=== PATIENT | male | born 1955 | race Caucasian/White ===

== ENCOUNTER 2021-05-19 10:43 | Outpatient (CLI) | payer MEDICARE, MEDICAID, SELFPAY ==
[2021-05-19 11:39] LABS: Alanine Aminotransferase 27 U/L (4-50); Albumin Level 4.4 g/dL (3.5-5.1); Alkaline Phosphatase 99 U/L (38-126); Anion Gap 7 mmol/L (8-16); Aspartate Amino Transferase 36 U/L (17-59); Bilirubin,Total 0.8 mg/dL (0.2-1.3); Blood Urea Nitrogen 13 mg/dL (9-20); Calcium 9.2 mg/dL (8.4-10.2); Carbon Dioxide 28 mmol/L (22-30); Chloride 106 mmol/L (98-107); Cholesterol 202 mg/dL (0-200); Estimated Glomerular Filt Rate > 60; Glucose 97 mg/dL (65-110); HDL Direct 30 mg/dL; Potassium 4.6 mmol/L (3.4-5.0); Sodium 141 mmol/L (137-145); Triglycerides 206 mg/dL (<150)
[2021-05-19 11:45] LABS: LDL Cholesterol Direct 137 mg/dL
[2021-05-19 11:58] LABS: Vitamin D 25 Hydroxy 15.7 ng/mL
[2021-05-19 12:05] LABS: Prostate Specific Antigen 1.1 ng/mL (< OR = 4.0)
[2021-05-19 12:19] LABS: Basophils Absolute Auto 0.1 K/mm3 (0.0-0.1); Eosinophils Absolute Auto 0.2 K/mm3 (0-0.3); Eosinophils Percent Auto 2.2 % (0-4.4); Hemoglobin 15.9 g/dL (14.0-18.0); Immature Granulocyte Absolute 0.03 K/mm3 (0.00-0.031); Immature Granulocyte Percent A 0.3 % (0-0.5); Lymphocytes Absolute Auto 3.25 K/mm3 (0.9-3.2); Lymphocytes Percent Auto 34.7 % (18.3-44.2); Mean Corpuscular HGB Conc 33.8 g/dl (32-36); Mean Corpuscular Hemoglobin 31.2 pg (26-34); Mean Corpuscular Volume 92.2 fl (80-100); Mean Platelet Volume 9.9 fl (7.4-10.4); Monocytes Absolute Auto 0.6 K/mm3 (0.1-0.6); Neutrophils Absolute Auto 5.2 K/mm3 (1.3-6.7); Neutrophils Percent Auto 55.8 % (45.5-73.1); Platelet Count Result 269 k/mm3 (150-375); Red Cell Distribution Width 12.9 % (11.5-14.5); White Blood Count 9.4 K/mm3 (4.5-10.0)
[2021-05-19 12:41] LABS: Free T4 Free Thyroxine Reflex 0.84 ng/dL (0.78-2.19)
[2021-05-19 14:05] LABS: Total Triiodothyronine (T3) 1.68 NG/ML (0.97-1.69)
== END 2021-05-19 10:44 | disposition home or self-care (01) ==
LOC: ANHLAB 11:00
PROVIDERS: Visit Provider Family Medicine
DX: M54.9 Dorsalgia, unspecified (principal); R29.6 Repeated falls; R26.89 Other abnormalities of gait and mobility; E55.9 Vitamin D deficiency, unspecified; E78.5 Hyperlipidemia, unspecified; Z13.220 Encounter for screening for lipoid disorders; Z12.5 Encounter for screening for malignant neoplasm of prostate
CPT/HCPCS: 36415; 80053; 80061; 82306; 82607; 84153; 84439; 84443; 84480; 85025; G0103

== ENCOUNTER 2021-09-14 09:31 | Outpatient (CLI) | payer MEDICARE, MEDICAID, SELFPAY ==
--- NOTE | 2021-09-14 | EST_ITS ---
Patient Info Name: Galo Evans Age: 66 years : 1955 Gender: Male Ht: 67 in Wt: 259 lbs BSA: 2.41 m2 Exam Date: 09/14/2021 10:22 AM Exam Location: [facility] Stress Patient Status: Outpatient Admit Date: 09/14/2021 Staff Ordering Physician: Asmita Khan MD Logistics Assistant: Jennifer Gonzalez RDCS Attending Provider: Asmita Khan MD Exercise Technologist: Leticia Wright CT Exercise Physician: Hugh Rey DO Exam Type: CA dobutamine stress echo Study Info Indications R94.31 - Abnormal electrocardiogram ECG EKG Dobutamine stress echocardiogram is performed. Summary 1. 1. Negative Dobutamine stress test for ischemic ST changes by ECG criteria. 2. 2. Baseline hypertension. 3. 3. Appropriate HR response to catecholamines. 4. 4. Negative dobutamine stress echocardiogram for ischemia by wall motion analysis. 5. 5. Patient informed of the above results. Stress Echo Findings Left Ventricle Appropriate increase in LV endocardial thickening with systole. Appropriate augmentation of contractility with systole. No wall motion abnormality. Left Ventricle Normal LV systolic function, no wall motion abnormality. Protocol: Doubutamine Stress ECG Details Stage: REST Duration (min): 1 min : 51 sec [place]: --- Speed (mph): 0.0 Grade (%): 0 HR (bpm): 71 SBP (mmHg): 151 DBP (mmHg): 81 METS: --- Stage: REST Duration (min): 13 min : 17 sec [place]: --- Speed (mph): 0.0 Grade (%): 0 HR (bpm): 66 SBP (mmHg): 151 DBP (mmHg): 81 METS: --- Stage: STAGE 1 Duration (min): 1 min : 0 sec [place]: --- Speed (mph): 0.0 Grade (%): 0 HR (bpm): 66 SBP (mmHg): 151 DBP (mmHg): 81 METS: --- Stage: STAGE 1 Duration (min): 2 min : 0 sec [place]: --- Speed (mph): 0.0 Grade (%): 0 HR (bpm): 75 SBP (mmHg): 151 DBP (mmHg): 81 METS: --- Stage: STAGE 1 Duration (min): 3 min : 0 sec [place]: --- Speed (mph): 0.0 Grade (%): 0 HR (bpm): 71 SBP (mmHg): 148 DBP (mmHg): 70 METS: --- Stage: STAGE 2 Duration (min): 1 min : 0 sec [place]: --- Speed (mph): 0.0 Grade (%): 0 HR (bpm): 93 SBP (mmHg): 148 DBP (mmHg): 70 METS: --- Stage: STAGE 2 Duration (min): 2 min : 0 sec [place]: --- Speed (mph): 0.0 Grade (%): 0 HR (bpm): 113 SBP (mmHg): 158 DBP (mmHg): 73 METS: --- Stage: STAGE 2 Duration (min): 3 min : 0 sec [place]: --- Speed (mph): 0.0 Grade (%): 0 HR (bpm): 119 SBP (mmHg): 158 DBP (mmHg): 73 METS: --- Stage: STAGE 3 Duration (min): 1 min : 0 sec [place]: --- Speed (mph): 0.0 Grade (%): 0 HR (bpm): 131 SBP (mmHg): 166 DBP (mmHg): 73 METS: --- Stage: STAGE 3 Duration (min): 2 min : 0 sec [place]: --- Speed (mph): 0.0 Grade (%): 0 HR (bpm): 135 SBP (mmHg): 166 DBP (mmHg): 73 METS: --- Stage: STAGE 3 Duration (min):
== END 2021-09-14 09:32 | disposition home or self-care (01) ==
LOC: ANHCARD 09:32
PROVIDERS: PCP Family Medicine; Visit Provider Family Medicine
DX: R94.31 Abnormal electrocardiogram [ECG] [EKG] (principal)
CPT/HCPCS: 93351

== ENCOUNTER 2021-12-19 09:41 | Outpatient (CLI) | payer MEDICARE, MEDICAID, SELFPAY ==
[2021-12-19 10:03] LABS: Alanine Aminotransferase 19 U/L (6-50); Albumin Level 4.2 g/dL (3.5-5.1); Alkaline Phosphatase 99 U/L (38-126); Anion Gap 6 mmol/L (8-16); Aspartate Amino Transferase 26 U/L (17-59); Bilirubin,Total 1.2 mg/dL (0.2-1.3); Blood Urea Nitrogen 14 mg/dL (9-20); Calcium 8.7 mg/dL (8.4-10.2); Carbon Dioxide 27 mmol/L (22-30); Chloride 107 mmol/L (98-107); Estimated Glomerular Filt Rate > 60; Glucose 99 mg/dL (65-110); Potassium 3.9 mmol/L (3.4-5.0); Sodium 140 mmol/L (137-145)
[2021-12-19 10:40] LABS: Vitamin D 25 Hydroxy 84.9 ng/mL
[2021-12-19 11:23] LABS: Free T4 Free Thyroxine Reflex 0.93 ng/dL (0.78-2.19)
[2021-12-19 13:31] LABS: Total Triiodothyronine (T3) 1.32 NG/ML (0.97-1.69)
== END 2021-12-19 09:42 | disposition home or self-care (01) ==
LOC: ANHLAB 09:42
PROVIDERS: PCP Family Medicine; Visit Provider Family Medicine
DX: E55.9 Vitamin D deficiency, unspecified (principal); I10 Essential (primary) hypertension
CPT/HCPCS: 36415; 80053; 82306; 84439; 84443; 84480

== ENCOUNTER 2021-12-21 16:36 | Emergency (ER) | payer MEDICARE, MEDICAID, SELFPAY ==
--- NOTE | ~2021-12-21 | CT_ITS ---
EXAMINATION: CT abdomen pelvis wo con DATE: 12/21/2021 18:42 INDICATION: Epigastric and left upper abdominal pain. Vomiting. TECHNIQUE: Computed tomography (CT) of the abdomen and pelvis was performed without intravenous contr ast. Automated exposure control and iterative reconstruction technique were employed. Exam dose: 135 9.41 mGy-cm total exam DLP. COMPARISON: None. FINDINGS: There is minimal dependent right lower lobe atelectasis. Heart size is normal. No pericardi al or pleural effusion. The liver, gallbladder, bile ducts, pancreas and pancreatic duct are unremarkable. Duodenal diverticu lum. Normal splenic size. Normal morphology of the left adrenal gland. Approximately 1.8 cm hypoattenuating right adrenal lesio n likely due to adenoma. There is evidence of a left upper pole renal mass lesion may measure up to or greater than 5 cm. Hype rnephroma is suggested. Further evaluation with MR examination (considering the shortage of IV iodina christin contrast material). Is recommended. No urinary tract calculus or hydroureteronephrosis is detected. The urinary bladder is unremarkable. Moderate prostate enlargement and mild prostate calcification. There is atherosclerotic calcification of the abdominal aorta but no aneurysm. With the exception of the left renal mass lesion, no intraperitoneal or retroperitoneal or pelvic mas s lesion or adenopathy or ascites is noted. Bilateral fat-containing inguinal hernias. Small fat-containing umbilical hernia. Normal appendix. There is minimal sigmoid diverticulosis; no CT evidence of diverticulitis. No bowel obstruction or intraperitoneal free air. Degenerative changes of thoracic spine. Prominent degenerative change at the lumbar spine including s evere degenerative disc disease at L1-2, L2-3 and L4-5, very prominent degenerative change at the apo physeal joints. No suspicious metastatic osteolytic or osteoblastic lesions are noted. IMPRESSION: Suspect large left upper pole renal mass, likely hypernephroma; further evaluation with MR examination is recommended Bilateral fat-containing inguinal hernias Small fat-containing umbilical hernia Dr. Owens telephoned the report on at [address] emergency room Dr. Itz Rangel. Reviewed, dictated and finalized at [facility]. Reviewed, dictated and finalized at location A. IMPRESSION: Suspect large left upper pole renal mass, likely hypernephroma; fu rther evaluation with MR examination is recommended Bilateral fat-containing inguinal hernias Small fat-containing umbilical hernia Dr. Owens telephoned the report on at [address] room [address] Ru Rangel.
--- NOTE | ~2021-12-21 | XR_ITS ---
EXAMINATION: XR chest 1V portable DATE: 12/21/2021 17:01 INDICATION: Shortness of breath. TECHNIQUE: A single frontal view of the chest was obtained. COMPARISON: None. FINDINGS: The chest demonstrates clear lungs without pneumonia, pleural effusion, or pneumothorax. Th e heart size is normal. IMPRESSION: 1. No acute cardiopulmonary disease. Reviewed, dictated and finalized at location B.
[2021-12-21 16:36] VITALS: BP 165/75; PULSE 70; RESP 16; TEMP 36.9; O2SAT 95
[2021-12-21 16:47] VITALS: PULSE 69
--- NOTE | 2021-12-21 16:59 | ECG_ITS ---
Measurements Intervals [place] Rate: 68 P: -1 ND: 142 QRS: -22 QRSD: 116 T: 29 QT: 406 QTc: 434 Interpretive Statements SINUS RHYTHM LOW QRS VOLTAGE IN PRECORDIAL LEADS [QRS DEFLECTION < 1.0 mV IN CHEST LEADS] POOR R-WAVE PROGRESSION ABNORMAL ECG NO PREVIOUS ECG AVAILABLE FOR COMPARISON Electronically Signed On 12-22-2021 14:29:59 CDT by Curtis Little M.D.
--- NOTE | 2021-12-21 17:07 | ED.GENADULT ---
HPI - General Adult General Chief complaint: Chest Pain Stated complaint: N/V cp Time Seen by Provider: 12/21/21 16:40 Source: patient, RN notes reviewed and old records reviewed Mode of arrival: ambulatory Limitations: no limitations History of Present Illness HPI narrative: This is a 66 year old male with history of palpitations, hypertension, obesity, DM who presents for evaluation of nausea and vomiting. Patient states he developed nausea and vomiting 2 hours ago . He had 4 episodes of nonbilious vomiting . He reports having left upper abdominal pain just prior to vomiting that lasted a few seconds. He reports having diaphoresis with his nausea and vomiting. He told staff he had chest pain but he is referring to his left upper abdomen. He denies fever, chills, cough or shortness of breath. He reports having normal stress test 2 months ago. He thinks his nausea and vomiting may be due to antibiotics he took for the first time today. He took augmentin at noon with his lunch for a dental abscess. Related Data Home Medications Medication Instructions Recorded Confirmed cyanocobalamin (vitamin B-12) 1,000 mcg IM MONTHLY 09/18/21 12/05/21 1,000 mcg/mL injection solution amlodipine 5 mg tablet 10 mg PO DAILY 12/05/21 12/05/21 metoprolol tartrate 25 mg tablet 25 mg PO QHS 12/05/21 12/05/21 Allergies Allergy/AdvReac Type Severity Reaction Status Date / Time No Known Allergies Allergy Verified 12/05/21 10:28 Review of Systems Review of Systems: All systems reviewed & are unremarkable except as noted in HPI and below Constitutional: Constitutional: Denies chills, Denies fatigue and Denies fever(s) ENT: Denies sore throat Cardiovascular: Cardiovascular: Denies chest pain and Denies rapid heart rate Respiratory: Respiratory: Denies chest congestion and Denies cough Gastrointestinal: Gastrointestinal: Reports abdominal pain, Denies diarrhea, Reports nausea and Reports vomiting Genitourinary: Genitourinary: Denies hematuria Musculoskeletal: Musculoskeletal: Denies back pain and Denies myalgias PMF Past Medical History Medical History Allergies Chronic neck and back pain Essential (primary) hypertension GERD (gastroesophageal reflux disease) Vitamin B12 deficiency Vitamin D deficiency Family History Family History Father Cerebrovascular accident Mother Hypertension Heart disease Social History Social History Smoking status: Current every day smoker Tobacco type: cigarettes Alcohol intake: never Substance use: never Substance use type: does not use Gender identity (if verbalized by the patient): Male Agree to blood products: Yes Exam Const: General: no acute distress Nutritional Appearance: well nourished Orientation/consciousness: patient oriented x3 Limitations: no limitations HENMT: Head: normal to inspection General nose exam: Normal external nose present Mouth: Yes Normal oral and palatal mucosa present Eyes: EOM: EOMs intact bilaterally Chest: Chest palpation & inspection: normal inspection of the chest Resp: Effort & Inspection: normal respiratory effort Auscultation: clear to auscultation bilaterally and breath sounds present Cardio: Rate: regular rate Rhythm: regular rhythm Heart sounds: no murmurs GI: GI Palp: Yes Soft to palpation, Yes Tenderness to palpation present (GI) (LUQ, epigastric), No Guarding due to palpation present (GI) and No Rigid due to palpation Auscultation: normal bowel sounds Back/Spine/Pelvis: Back: no CVA tenderness Skin: General skin exam: normal color Wounds: no wounds Neuro: General: patient oriented x3 and CN's II-XI intact bilaterally Psych: Mental Status: mental status grossly normal Affect: normal affect Course Reevaluation(s) Reevaluation #1:
--- NOTE | 2021-12-21 17:30 | PC.NURSE ---
pt states is having epigastric pressure. meds given per order. ekg repeated.
[2021-12-21 17:31] LABS: Basophils Percent Auto 0.3 % (0.2-1.2); Eosinophils Absolute Auto 0.1 K/mm3 (0-0.3); Eosinophils Percent Auto 0.8 % (0-4.4); Hematocrit 46.3 % (42.0-52.0); Immature Granulocyte Absolute 0.04 K/mm3 (0.00-0.031); Immature Granulocyte Percent A 0.3 % (0-0.5); Lymphocytes Absolute Auto 0.77 K/mm3 (0.9-3.2); Lymphocytes Percent Auto 5.9 % (18.3-44.2); Mean Corpuscular HGB Conc 32.4 g/dl (32-36); Mean Corpuscular Hemoglobin 30.3 pg (26-34); Mean Corpuscular Volume 93.5 fl (80-100); Mean Platelet Volume 10.3 fl (7.4-10.4); Monocytes Absolute Auto 0.7 K/mm3 (0.1-0.6); Monocytes Percent Auto 5.2 % (2.6-8.5); Neutrophils Absolute Auto 11.5 K/mm3 (1.3-6.7); Neutrophils Percent Auto 87.5 % (45.5-73.1); Platelet Count Result 266 k/mm3 (150-375); Red Blood Count 4.95 M/mm3 (4.6-6.20); White Blood Count 13.1 K/mm3 (4.5-10.0)
[2021-12-21 17:32] LABS: Alanine Aminotransferase 20 U/L (6-50); Albumin Level 4.1 g/dL (3.5-5.1); Alkaline Phosphatase 97 U/L (38-126); Anion Gap 5 mmol/L (8-16); Aspartate Amino Transferase 24 U/L (17-59); Bilirubin,Total 0.6 mg/dL (0.2-1.3); Blood Urea Nitrogen 18 mg/dL (9-20); Calcium 8.5 mg/dL (8.4-10.2); Carbon Dioxide 27 mmol/L (22-30); Chloride 107 mmol/L (98-107); Estimated CRCL calculation 79 ml/min; Estimated Glomerular Filt Rate > 60; Glucose 144 mg/dL (65-110); Lipase 129 U/L (23-300); Potassium 3.5 mmol/L (3.4-5.0); Sodium 139 mmol/L (137-145)
--- NOTE | 2021-12-21 17:38 | ECG_ITS ---
Measurements Intervals [place] Rate: 64 P: 33 NE: 150 QRS: 3 QRSD: 112 T: 11 QT: 407 QTc: 421 Interpretive Statements SINUS RHYTHM LOW QRS VOLTAGE IN PRECORDIAL LEADS [QRS DEFLECTION < 1.0 mV IN CHEST LEADS] BORDERLINE ECG COMPARED TO ECG 12/21/2021 16:43:08 NO SIGNIFICANT CHANGES Electronically Signed On 12-26-2021 15:00:49 CDT by Bennett Dyson M.D.
[2021-12-21] MEDS: PANTOPRAZOLE SODIUM IV 40 MG VIAL IV PUSH (17:43)
[2021-12-21] MEDS: ONDANSETRON INJ 4 MG/2 ML VIAL IV PUSH ×2 (17:43→21:54)
[2021-12-21 17:44] LABS: Troponin I < 0.012 ng/mL (0.000-0.034)
[2021-12-21 17:52] LABS: INR 1.2; Prothrombin Time 14.3 Seconds (11.1-14.7)
[2021-12-21 18:00] LABS: Partial Thromboplastin Time 27.4 SECONDS (22.3-36.8)
[2021-12-21 19:38] VITALS: BP 109/73; PULSE 66; RESP 18; O2SAT 100
[2021-12-21 20:55] LABS: Appearance Urine Clear (Clear); Bilirubin Urine 1+ (Negative); Blood Urine Negative (Negative); Color Urine Yellow (Yellow); Glucose Urine UA Negative (Negative); Ketones Urine Negative (Negative); Leukocyte Esterase Ur Negative LEU/UL (Negative); Nitrate Urine Negative (Negative); Protein Urine Negative (Negative); Specific Grav Ur 1.025 (1.001-1.035)
[2021-12-21 21:03] LABS: Mucus Urine Rare /lpf; RBC Urine 0-2 /hpf (0-2); WBC Urine 0-3 /hpf
[2021-12-21 21:04] LABS: Add Urine Microscopic? YES
[2021-12-21 21:05] LABS: Troponin I < 0.012 ng/mL (0.000-0.034)
[2021-12-21 22:19] VITALS: BP 125/69; PULSE 69; RESP 18; O2SAT 93
== END 2021-12-21 22:20 | disposition home or self-care (01) ==
PROVIDERS: General Practice; Emergency Provider Emergency Medicine; PCP Family Medicine
DX: R11.2 Nausea with vomiting, unspecified (principal); R10.12 Left upper quadrant pain; N28.89 Other specified disorders of kidney and ureter; K04.7 Periapical abscess without sinus; I10 Essential (primary) hypertension; K21.9 Gastro-esophageal reflux disease without esophagitis; E55.9 Vitamin D deficiency, unspecified; E53.8 Deficiency of other specified B group vitamins; E66.9 Obesity, unspecified; Z68.41 Body mass index [BMI] 40.0-44.9, adult; F17.210 Nicotine dependence, cigarettes, uncomplicated; R94.31 Abnormal electrocardiogram [ECG] [EKG]; K40.20 Bilateral inguinal hernia, without obstruction or gangrene, not specified as recurrent; K42.9 Umbilical hernia without obstruction or gangrene
CPT/HCPCS: 36415; 71045; 74176; 80053; 81001; 83690; 84484; 85025; 85610; 85730; 93005; 96374; 96375; 96376; 99284; C9113; J2405

== ENCOUNTER 2022-01-26 12:30 | Outpatient (RCR) | payer MEDICARE, MEDICAID, SELFPAY ==
--- NOTE | 2021-12-19 09:16 | PTOPEVAL ---
PHYSICAL THERAPY EVALUATION AND PLAN OF CARE 12-19-- Thank you for referring Galo Evans to [facility].? Antonio is scheduled to be seen for therapy? 2 x/week for 4 weeks. Please review, sign, date and return this plan of care ZINA. I agree with and certify that the following plan of care is medically necessary. Referring Physician Date Attending Provider: Beth Khan MD Past Medical History Source of Past Medical History Patient Neurological History Hx Neurological Disorders No Significant History Cardiovascular History Hx Other Cardiac Disorders Yes: PVC- meds control Respiratory History Hx Respiratory Disorders No Significant History Gastrointestinal History Hx Gastrointestinal Disorders No Significant History Musculoskeletal History Hx Arthritis Yes: neck, back, knees, Hx Back Pain Yes: chronic back pain- B sciatica Hx Other Musculoskeletal Disorders Yes: swelling in both lower legs/calves;B ankle weakness- have to wear boots Endocrine History Hx Other Endocrine Disorders Yes: to have blood work for ? thyroid issues HEENT History Hx Other HEENT Disorders Yes: wear glasses; saw ENT- no issues with ears Evaluation Information Diagnosis repeated falls, cervicalgia, dorsalgia, other chronic pain Onset May 2021 Additional Evaluation Detail multiple diagnosis on the PT referral--pt stated back is his biggest issue now and wants to begin treatment for back pain; Subjective Information increase back pain and falls Query Text:As Reported By Patient/ in May 2021; saw Family neurologist, to have nerve conduction study on legs, but has been canceled due to no one available to do it; Diagnostic Tests X-Rays For This Problem Yes: at chiropractor office- per pt: full of arthritis Previous Treatments For This Problem chiropractor--stopped going there due to manipulating neck & pain increase Prior Level of Function Activity Level (Last 3 Months) Occupation retired Activity of Daily Living Ability Independent Indoor/Home Mobility Independent Community Mobility Independent Stairs Ability Independent Functional Cognition (Planning, Shopping Independent , Taking Medications) Cooking Yes Cleaning Yes Laundry Yes
--- NOTE | 2021-12-22 09:01 | PCPTNOTE ---
Patient called & cancelled scheduled appointment this date due to not feeling well. Pt also stated he had been in the ER yesterday for a few hours.
--- NOTE | 2022-01-17 09:52 | PTOPEVAL ---
PHYSICAL THERAPY REEVALUATION AND UPDATED PLAN OF CARE 01-17-22 Refer to the clinical summary below, for his status today, compared to the initial evaluation. The goals were partially achieved. Continue PT treatment 2x/wk for weeks. Thank you for referring Galo Evans to [facility].? Please review, sign, date and return this updated plan of care [facility]. I agree with and certify that the following plan of care is medically necessary. Referring Physician Date Attending Provider: Beth Khan MD Subjective Information Antonio reports: have not fallen Query Text:As Reported By Patient/ for the past 3 weeks; thinks Family he may have an ear infection- to see ENT again for follow up; was hospitalized due to reaction to antibiotic from dentist for abscess tooth- had scan, to see about mass on L kidney; at dr office, have lost 14#; want to continue therapy. Pain Assessment Pain Scale Pain Scale Used Numeric (1 - 10) Self Report Pain Assessment Bilateral Spine, Lumbar Reported Pain Level 4 Pain Description Dull,Tightness Radicular Pain Location R posterior LE to knee/ L no pain in leg Pain Frequency Chronic,Continuous Lowest Pain Intensity 1 Greatest Pain Intensity 10 Additional Pain Score Comments reported walking is not limited due to back pain, but at 15 minutes, feels tightness of back; Oswestry self assessment 32% limitation in activity Interventions Used Interventions Used By Clinicians Education,Exercise Pain Relief Interventions Used By Ice,Inactivity/Rest,Position Patient Change Gross Lower Extremity Range of Motion - supine trunk rotation R/L - Comments no pain increase - supine hip IR: R increase lateral hip pain/ L without pain Gross Lower Extremity Strength functional strength testing: - single leg standing R 1/ L 5 seconds - standing B PF x20 reps- increase pain in back; slight heel lift off ground L > R; - supine SLR R x 20 reps- cramp in R quad - side lying hip abduction R to 0' x 3 --increase pain in leg and back/L to 20' x
--- NOTE | 2022-01-31 16:42 | PCPTNOTE ---
Patient told staff he would not be attending therapy this date.
--- NOTE | 2022-02-02 09:28 | PCPTNOTE ---
Patient told front desk monitor he will not be attending therapy.
--- NOTE | 2022-03-07 14:53 | PCPTNOTE ---
PHYSICAL THERAPY DISCHARGE REPORT 03-07-22 Attending Provider: Beth Khan MD Patient:Galo Evans Date of :1955 Mr. Evans has not returned for any further treatments since 01/26/2022, therefore he will be discharged at this time. He received 9 PT sessions from December 19 to January 26, for the diagnosis of falls, neck and back pain. He then canceled his therapy due to other medical issues. The goals were not addressed. Thank you for referring Antonio to [facility]. Please review, sign, date and return this discharge summary ZINA. I have been updated about the patient's current status and I agree with discharge from the above service at this time. Referring Physician Date
== END 2022-03-09 08:15 | disposition home or self-care (01) ==
LOC: ANHPT 12:30
PROVIDERS: PCP Family Medicine; Visit Provider Family Medicine
DX: R29.6 Repeated falls (principal); M54.2 Cervicalgia; M54.9 Dorsalgia, unspecified; G89.29 Other chronic pain
CPT/HCPCS: 97110; 97112; 97140; 97162; 97530

== ENCOUNTER 2022-04-01 20:25 | Emergency (ER) | payer MEDICARE, MEDICAID, SELFPAY ==
[2022-04-01] VITALS (13 sets, daily range): BP systolic 136–176; BP diastolic 72–76; PULSE 81–112; RESP 13–23; TEMP 37.8; O2SAT 87–98
--- NOTE | ~2022-04-01 | XR_ITS ---
XR chest 1V portable DATE: 04/01/2022 21:04 INDICATION: Chest pain TECHNIQUE: Portable supine AP views on 04/01/2022 at 2103 hours COMPARISON: 12/21/2021 portable AP chest at 1648 hours FINDINGS: Normal heart size. No hilar or mediastinal enlargement. Mild aortic calcification and unfol ding. Mild elevation of right leaf of diaphragm. Mild discoid atelectasis or scarring is suggested at the r ight lung base. The lungs otherwise appear clear. IMPRESSION: Mild elevation of right diaphragm and mild discoid atelectasis or scarring at right lung base Reviewed, dictated and finalized at location A. IMPRESSION: Mild elevation of right diaphragm and mild discoid atelectasis or s carring at right lung base
--- NOTE | ~2022-04-01 | CT_ITS ---
EXAMINATION: CTA chest PE abdomen pel DATE: 04/01/2022 22:29 INDICATION: Chest pain. Recent partial nephrectomy TECHNIQUE: Computed tomography angiography (CTA) of the chest was performed with 100 mL Omnipaque-350 intravenous contrast timed to evaluate the pulmonary arteries. Coronal maximum intensity projection 3D-reconstructions were created by the technologist. Automated exposure control and iterative reconst ruction technique were employed. Exam dose: 2236.85 mGy-cm total exam DLP. COMPARISON: 04/01/2022 portable AP chest FINDINGS: There is suboptimal contrast opacification of the pulmonary arteries and limitations due to respiratory motion. No central pulmonary embolus is identified but the segmental and subsegmental pu lmonary arteries are not well demonstrated. There is suggestion of possible subsegmental left lower l obe pulmonary embolism. Repeat examination is recommended. No thoracic aortic aneurysm or dissection. No hilar or mediastinal mass lesion or lymphadenopathy. Cardiomegaly. No pericardial effusion. Mild bilateral dependent upper and to a greater extent lower lobe atelectasis. 1.8 x 2 cm right adrenal mass with attenuation of 13 Hounsfield units, most likely adrenal adenoma. L eft adrenal gland is unremarkable. Postoperative change from left nephrectomy. Small sliding hiatal hernia. Severe degenerative disc disease in lower cervical spine. Degenerative spurring of the thoracic spine . No suspicious osteolytic or osteoblastic lesions are noted. IMPRESSION: Nondiagnostic examination, questionable subsegmental left lower lobe pulmonary embolism. Repeat examination is recommended Reviewed, dictated and finalized at [facility]. Reviewed, dictated and finalized at location A. IMPRESSION: Nondiagnostic examination, questionable subsegmental left lower lo be pulmonary embolism. Repeat examination is recommended
--- NOTE | 2022-04-01 20:33 | ECG_ITS ---
Measurements Intervals [place] Rate: 101 P: 55 OR: 172 QRS: 14 QRSD: 103 T: 29 QT: 320 QTc: 415 Interpretive Statements SINUS TACHYCARDIA NONSPECIFIC ST & T-WAVE ABNORMALITY- DIFFUSE LEADS BORDERLINE ECG COMPARED TO ECG 12/21/2021 17:38:54 HEART RATE HAS INCREASED NONSPECIFIC ST & T-WAVE ABNORMALITY NOW PRESENT Electronically Signed On 04-04-2022 11:36:50 CDT by Hugh Rey D.O.
--- NOTE | 2022-04-01 20:39 | ED.GENADULT ---
HPI - General Adult General Chief complaint: Chest Pain Stated complaint: cp and abd pain dc today from [facility] Time Seen by Provider: 04/01/22 20:30 History of Present Illness HPI narrative: Patient is a 67-year-old gentleman who presents emerged part with chief complaint of chest discomfort and abdominal discomfort. Patient reports that he was at [facility] after having a partial nephrectomy. The patient states that he was discharged around 3 PM today and that around 7 PM tonight he was laying in bed noticed there was a little bit of blood on the sheets were around where his incisions would be and then developed chest pain and abdominal pain and shortness of breath. The patient also reports that he was having chills and body aches at the same time. The patient states that he called EMS and was transported to the hospital. Related Data Home Medications Medication Instructions Recorded Confirmed amlodipine 5 mg tablet 10 mg PO DAILY 12/05/21 01/24/22 metoprolol tartrate 25 mg tablet 25 mg PO QHS 12/05/21 01/24/22 Allergies Allergy/AdvReac Type Severity Reaction Status Date / Time amoxicillin Allergy Severe Vomiting Verified 04/01/22 20:47 Review of Systems Review of Systems: A 10 system review of systems was completed on the patient and is negative except for what is stated in the HPI. Nursing and ancillary documentation was reviewed. [facility] Past Medical History Medical History Allergies Chronic neck and back pain Essential (primary) hypertension GERD (gastroesophageal reflux disease) Vitamin B12 deficiency Vitamin D deficiency Family History Family History Father Cerebrovascular accident Mother Hypertension Heart disease Social History Social History Smoking status: Former smoker Tobacco type: cigarettes Smoking end date: 01/05/22 Alcohol intake: never Substance use: never Substance use type: does not use Additional occupation/education comments: [employer] Gender identity (if verbalized by the patient): Male Agree to blood products: Yes Exam Narrative: GENERAL: Well-appearing, well-nourished, and in no acute distress. HEAD: Normocephalic, atraumatic. EYES: PERRLA and EOMI. ENT: Nares clear, no rhinorrhea or epistaxis. Mucous membranes moist. NECK: Supple. CHEST: Clear to auscultation. No respiratory distress. HEART: Regular rate and rhythm. No murmur heard. Normal peripheral pulses. ABDOMEN: Soft, tenderness to palpation in the left abdominal area, there are several incisions present of the abdomen that are intact there is subcutaneous emphysema present to palpation nondistended, normal active bowel sounds. EXTREMITIES: Normal range of motion. No edema. SKIN: Warm, dry, no rash. NEURO: No focal deficits. Alert and oriented x3. PSYCH: Normal mood and affect. Course Course Emergency Course: CT scan showed evidence of postoperative hemorrhage. There is concern for possible blush at the area of the wedge resection. The case was discussed with Dr. Rahman who performed the surgery at [facility]. Due to the possibility for active bleeding he recommended transferring to [place] where he also has privileges due to the availability of interventional radiology. The case was discussed with the emergency physician at [place] [facility] and patient was accepted to the emergency department. Vital Signs Vital signs: Vital Signs Temperature 37.8 C H 04/01/22 20:23 Pulse Rate 112 H 04/01/22 20:23 Respiratory Rate 20 04/01/22 20:23 Blood Pressure 176/76 H 04/01/22 20:23 Pulse Oximetry 97 04/01/22 20:23 Oxygen Delivery Room Air 04/01/22 20:23 Temperature 37.8 C H 04/01/22 20:23 Pulse Rate 97 04/01/22 22:32 Respiratory Rate 23 H 04/01/22 22:32 Blood Pressure 136/72 04/01/22 21:15 Pulse O
[2022-04-01] MEDS: MORPHINE SULFATE (*CRX) 4 MG/ML INJ IV PUSH (20:52)
[2022-04-01] MEDS: SODIUM CHLORIDE 0.9% IV 1,000 ML 999 ML IV CONT (20:53)
[2022-04-01] MEDS: ONDANSETRON INJ 4 MG/2 ML VIAL IV PUSH (20:53)
[2022-04-01 21:19] LABS: Basophils Percent Auto 0.3 % (0.2-1.2); Eosinophils Absolute Auto 0.1 K/mm3 (0-0.3); Eosinophils Percent Auto 0.6 % (0-4.4); Hematocrit 35.3 % (42.0-52.0); Hemoglobin 11.7 g/dL (14.0-18.0); Immature Granulocyte Absolute 0.04 K/mm3 (0.00-0.031); Immature Granulocyte Percent A 0.4 % (0-0.5); Lymphocytes Absolute Auto 1.05 K/mm3 (0.9-3.2); Lymphocytes Percent Auto 11.7 % (18.3-44.2); Mean Corpuscular HGB Conc 33.1 g/dl (32-36); Mean Corpuscular Hemoglobin 30.7 pg (26-34); Mean Corpuscular Volume 92.7 fl (80-100); Mean Platelet Volume 9.8 fl (7.4-10.4); Monocytes Absolute Auto 0.9 K/mm3 (0.1-0.6); Monocytes Percent Auto 9.4 % (2.6-8.5); Neutrophils Percent Auto 77.6 % (45.5-73.1); Platelet Count Result 233 k/mm3 (150-375); Red Blood Count 3.81 M/mm3 (4.6-6.20); Red Cell Distribution Width 12.9 % (11.5-14.5)
[2022-04-01 21:32] LABS: INR 1.2; Prothrombin Time 14.9 Seconds (11.1-14.7)
[2022-04-01 21:34] LABS: Alanine Aminotransferase 26 U/L (6-50); Albumin Level 3.5 g/dL (3.5-5.1); Alkaline Phosphatase 64 U/L (38-126); Anion Gap 9 mmol/L (8-16); Aspartate Amino Transferase 46 U/L (17-59); Bilirubin,Total 1.3 mg/dL (0.2-1.3); Blood Urea Nitrogen 23 mg/dL (9-20); Carbon Dioxide 26 mmol/L (22-30); Chloride 101 mmol/L (98-107); Estimated CRCL calculation 57 ml/min; Estimated Glomerular Filt Rate 51; Glucose 117 mg/dL (65-110); Lipase 57 U/L (23-300); Magnesium 1.9 mg/dL (1.6-2.3); Potassium 3.3 mmol/L (3.4-5.0); Sodium 136 mmol/L (137-145)
[2022-04-01 21:46] LABS: Troponin I < 0.012 ng/mL (0.000-0.034)
[2022-04-01 21:50] LABS: Procalcitonin 0.3 ng/mL
[2022-04-01 21:57] LABS: Influenza A QL RT-PCR Negative (Negative); Influenza B QL RT-PCR Negative (Negative); SARS-CoV-2 RNA PCR Negative
[2022-04-01 23:22] LABS: Add Urine Microscopic? YES; Appearance Urine Clear (Clear); Bilirubin Urine 1+ (Negative); Blood Urine 2+ (Negative); Color Urine Brown (Yellow); Glucose Urine UA Negative (Negative); Ketones Urine 1+ mg/dL (Negative); Leukocyte Esterase Ur Negative LEU/UL (Negative); Nitrate Urine Negative (Negative); Protein Urine 1+ mg/dL (Negative); Specific Grav Ur 1.015 (1.001-1.035); pH Urine 5.5 (5.0-9.0)
[2022-04-01 23:25] LABS: WBC Urine 0-3 /hpf
[2022-04-01 23:43] LABS: Hematocrit 32.2 % (42.0-52.0); Hemoglobin 10.5 g/dL (14.0-18.0)
--- NOTE | 2022-04-01 23:48 | PC.NURSE ---
Report to KAROLYN Pimentel. Pt to be transferred to [facility] via [facility].
[2022-04-02 00:06] LABS: Troponin I 0.018 ng/mL (0.000-0.034)
== END 2022-04-01 23:57 | disposition short-term general hospital (02) ==
PROVIDERS: Emergency Provider Emergency Medicine; PCP Family Medicine
DX: N99.820 Postprocedural hemorrhage of a genitourinary system organ or structure following a genitourinary system procedure (principal); Z20.822 Contact with and (suspected) exposure to COVID-19; C64.2 Malignant neoplasm of left kidney, except renal pelvis; I10 Essential (primary) hypertension; K21.9 Gastro-esophageal reflux disease without esophagitis; E53.8 Deficiency of other specified B group vitamins; E55.9 Vitamin D deficiency, unspecified; Z87.891 Personal history of nicotine dependence; Z90.5 Acquired absence of kidney
CPT/HCPCS: 36415; 71045; 71275; 74177; 80053; 81001; 83605; 83690; 83735; 84145; 84484; 85014; 85018; 85025; 85610; 85730; 87040; 87502; 93005; 96361; 96365; 96375; 99291; C9803; J0131; J2270; J2405; J7030; Q9967; U0003; U0005

== ENCOUNTER 2022-06-11 10:16 | Outpatient (CLI) | payer MEDICARE, MEDICAID, SELFPAY ==
[2022-06-11 19:05] LABS: Basophils Absolute Auto 0.1 K/mm3 (0.0-0.1); Basophils Percent Auto 1.2 % (0.2-1.2); Eosinophils Absolute Auto 0.3 K/mm3 (0-0.3); Hematocrit 46.1 % (42.0-52.0); Hemoglobin 14.8 g/dL (14.0-18.0); Immature Granulocyte Absolute 0.02 K/mm3 (0.00-0.031); Immature Granulocyte Percent A 0.2 % (0-0.5); Lymphocytes Absolute Auto 2.45 K/mm3 (0.9-3.2); Lymphocytes Percent Auto 29.8 % (18.3-44.2); Mean Corpuscular HGB Conc 32.1 g/dl (32-36); Mean Corpuscular Hemoglobin 30.4 pg (26-34); Mean Corpuscular Volume 94.7 fl (80-100); Mean Platelet Volume 10.2 fl (7.4-10.4); Monocytes Absolute Auto 0.6 K/mm3 (0.1-0.6); Monocytes Percent Auto 7.8 % (2.6-8.5); Neutrophils Absolute Auto 4.8 K/mm3 (1.3-6.7); Platelet Count Result 274 k/mm3 (150-375); Red Blood Count 4.87 M/mm3 (4.6-6.20); Red Cell Distribution Width 13.3 % (11.5-14.5); White Blood Count 8.2 K/mm3 (4.5-10.0)
[2022-06-11 20:39] LABS: Vitamin D 25 Hydroxy 33.8 ng/mL
[2022-06-11 21:37] LABS: Alanine Aminotransferase 24 U/L (6-50); Albumin Level 4.1 g/dL (3.5-5.1); Alkaline Phosphatase 113 U/L (38-126); Anion Gap 10 mmol/L (8-16); Aspartate Amino Transferase 29 U/L (17-59); Bilirubin,Total 0.3 mg/dL (0.2-1.3); Blood Urea Nitrogen 16 mg/dL (9-20); Calcium 8.8 mg/dL (8.4-10.2); Carbon Dioxide 25 mmol/L (22-30); Chloride 105 mmol/L (98-107); Cholesterol 175 mg/dL (0-200); Estimated Glomerular Filt Rate > 60; Glucose 105 mg/dL (65-110); HDL Direct 25 mg/dL; Potassium 3.9 mmol/L (3.4-5.0); Sodium 140 mmol/L (137-145); Triglycerides 195 mg/dL (<150)
[2022-06-11 21:48] LABS: LDL Cholesterol Direct 111 mg/dL
[2022-06-11 22:11] LABS: Prostate Specific Antigen 1.5 ng/mL (< OR = 4.0)
[2022-06-12 03:01] LABS: Free T4 Free Thyroxine Reflex 0.96 ng/dL (0.78-2.19)
[2022-06-12 03:47] LABS: Total Triiodothyronine (T3) 1.44 NG/ML (0.97-1.69)
== END 2022-06-11 10:17 | disposition home or self-care (01) ==
PROVIDERS: PCP Family Medicine; Visit Provider Family Medicine
DX: R29.818 Other symptoms and signs involving the nervous system (principal); I10 Essential (primary) hypertension; E78.5 Hyperlipidemia, unspecified; Z12.5 Encounter for screening for malignant neoplasm of prostate; E53.8 Deficiency of other specified B group vitamins; E55.9 Vitamin D deficiency, unspecified
CPT/HCPCS: 36415; 80053; 80061; 82306; 82607; 84153; 84439; 84443; 84480; 85025; G0103

== ENCOUNTER 2023-06-19 09:43 | Outpatient (CLI) | payer MEDICARE, MEDICAID, SELFPAY ==
[2023-06-19 12:37] LABS: Basophils Absolute Auto 0.1 K/mm3 (0.0-0.1); Basophils Percent Auto 0.8 % (0.2-1.2); Eosinophils Absolute Auto 0.4 K/mm3 (0-0.3); Eosinophils Percent Auto 3.5 % (0-4.4); Hematocrit 45.1 % (42.0-52.0); Hemoglobin 14.7 g/dL (14.0-18.0); Immature Granulocyte Absolute 0.06 K/mm3 (0.00-0.031); Immature Granulocyte Percent A 0.6 % (0-0.5); Lymphocytes Absolute Auto 2.61 K/mm3 (0.9-3.2); Lymphocytes Percent Auto 26.3 % (18.3-44.2); Mean Corpuscular HGB Conc 32.6 g/dl (32-36); Mean Corpuscular Hemoglobin 30.4 pg (26-34); Mean Corpuscular Volume 93.4 fl (80-100); Mean Platelet Volume 10.6 fl (7.4-10.4); Monocytes Absolute Auto 0.8 K/mm3 (0.1-0.6); Monocytes Percent Auto 7.6 % (2.6-8.5); Neutrophils Absolute Auto 6.1 K/mm3 (1.3-6.7); Neutrophils Percent Auto 61.2 % (45.5-73.1); Platelet Count Result 309 k/mm3 (150-375); Red Blood Count 4.83 M/mm3 (4.6-6.20); Red Cell Distribution Width 13.5 % (11.5-14.5); White Blood Count 9.9 K/mm3 (4.5-10.0)
[2023-06-19 12:46] LABS: Alanine Aminotransferase 25 U/L (6-50); Alkaline Phosphatase 112 U/L (38-126); Anion Gap 5 mmol/L (8-16); Aspartate Amino Transferase 45 U/L (17-59); Bilirubin,Total 0.7 mg/dL (0.2-1.3); Blood Urea Nitrogen 14 mg/dL (9-20); Calcium 9.3 mg/dL (8.4-10.2); Carbon Dioxide 29 mmol/L (22-30); Chloride 106 mmol/L (98-107); Cholesterol 193 mg/dL (0-200); Estimated Glomerular Filt Rate > 60; Glucose 93 mg/dL (65-110); HDL Direct 27 mg/dL; Potassium 4.3 mmol/L (3.4-5.0); Sodium 140 mmol/L (137-145); Triglycerides 233 mg/dL (<150)
[2023-06-19 12:57] LABS: LDL Cholesterol Direct 119 mg/dL
[2023-06-19 13:15] LABS: Prostate Specific Antigen 1.2 ng/mL (< OR = 4.0)
[2023-06-19 13:16] LABS: Vitamin D 25 Hydroxy 16.9 ng/mL
[2023-06-19 14:09] LABS: Free T4 Free Thyroxine Reflex 1.08 ng/dL (0.78-2.19)
[2023-06-19 18:05] LABS: Total Triiodothyronine (T3) 1.42 NG/ML (0.97-1.69)
== END 2023-06-19 09:44 | disposition home or self-care (01) ==
PROVIDERS: PCP Family Medicine; Visit Provider Family Medicine
DX: E78.5 Hyperlipidemia, unspecified (principal); I10 Essential (primary) hypertension; K21.9 Gastro-esophageal reflux disease without esophagitis; E55.9 Vitamin D deficiency, unspecified; E53.8 Deficiency of other specified B group vitamins; Z12.5 Encounter for screening for malignant neoplasm of prostate
CPT/HCPCS: 36415; 80053; 80061; 82306; 82607; 84153; 84439; 84443; 84480; 85025; G0103

== ENCOUNTER 2024-02-10 10:30 | Emergency (ER) | payer MEDICARE, MEDICAID, SELFPAY ==
[2024-02-10 11:11] VITALS: BP 129/69; PULSE 73; RESP 20; TEMP 36.5; O2SAT 100
--- NOTE | 2024-02-10 11:42 | ED.URI ---
HPI - URI/Sore Throat General Chief Complaint: Upper Respiratory Infection Stated Complaint: Chills/Headache Time Seen by Provider: 02/10/24 11:42 Source: patient, RN notes reviewed and old records reviewed Mode of arrival: ambulatory Limitations: no limitations History of Present Illness HPI Narrative: 69-year-old male presents to the [facility] with concerns for COVID Patient reports generalized fatigue, body aches for couple of days. No treatment prior to arrival Related Data Home Medications Medication Instructions Recorded Confirmed albuterol sulfate 90 mcg/actuation 2 inh inhalation Q4-6H 06/19/23 02/10/24 aerosol inhaler metoprolol succinate 50 mg 50 mg PO DAILY 06/19/23 02/10/24 tablet,extended release 24 hr Allergies Allergy/AdvReac Type Severity Reaction Status Date / Time amoxicillin Allergy Severe Vomiting Verified 02/10/24 10:40 Review of Systems Review of Systems: All systems reviewed & are unremarkable except as noted in HPI and below Constitutional: Constitutional: Reports as per HPI, Reports body ache(s), Reports chills, Reports fatigue and Denies fever(s) Eyes: Eyes: Reports no additional eye complaints ENT: Reports system reviewed and no additional complaints, except as documented Cardiovascular: Cardiovascular: Reports no additional cardiovascular complaints, Denies chest pain and Denies dyspnea Respiratory: Respiratory: Reports no additional respiratory complaints, Denies chest congestion, Denies cough and Denies dyspnea Gastrointestinal: Gastrointestinal: Reports no additional gastrointestinal complaints, Denies abdominal pain, Denies nausea and Denies vomiting Musculoskeletal: Musculoskeletal: Reports no additional musculoskeletal complaints Integumentary/Breasts: Skin/Breast: Reports system reviewed and no additional complaints, except as docu Neurologic: Reports system reviewed and no additional complaints, except as documented Psychiatric: Psychiatric: Reports no additional psychiatric complaints Allergic/Immunologic: Allergic/Immunologic: Reports no additional allergic/immunologic complaints PMFSH Past Medical History Medical History Allergic asthma Allergies Chronic neck and back pain Chronic venous insufficiency of lower extremity Environmental allergies Essential (primary) hypertension GERD (gastroesophageal reflux disease) Peripheral neuropathy Renal cell carcinoma of left kidney Vitamin B12 deficiency Vitamin D deficiency Surgical History Surgical History History of partial nephrectomy (~03/30/22) RCC of left kidney Family History Family History Father Cerebrovascular accident Mother Hypertension Heart disease Social History Social History Smoking status: Former smoker (< 15 pack years) Tobacco type: cigarettes Smoking end date: 12/06/05 Alcohol intake: never Substance use: never Substance use type: does not use Lack of Transportation: No Lack of Food: Never True Current Housing: I Have Housing Concerned About Future Housing: No Difficulty Paying Gas/Electric Bills: No Difficulty Paying for Meds: No Currently Unemployed: No Education: Trade/Vocational Certificate Difficulty w/ Childcare or Family Care: No Living arrangements: alone Occupation/Education: occupation Additional occupation/education comments: [employer] Gender identity (if verbalized by the patient): Male Agree to blood products: Yes Comments At the time of my signature, I reviewed and agree with the nursing past medical, surgical, social, and family history. There is no relevant family history pertinent to the patient complaint. Exam Const: General: cooperative, healthy appearing, comfortable, no acute distress, well developed,
== END 2024-02-10 11:55 | disposition home or self-care (01) ==
PROVIDERS: Emergency Provider Nurse Practitioner; PCP Family Medicine
DX: U07.1 COVID-19 (principal); Z87.891 Personal history of nicotine dependence; I10 Essential (primary) hypertension; K21.9 Gastro-esophageal reflux disease without esophagitis; G62.9 Polyneuropathy, unspecified; Z85.528 Personal history of other malignant neoplasm of kidney; Z90.5 Acquired absence of kidney
CPT/HCPCS: 87426; 99213; G0463

== ENCOUNTER 2024-06-16 10:11 | Outpatient (CLI) | payer MEDICARE, MEDICAID, SELFPAY ==
[2024-06-16 15:47] LABS: Basophils Absolute Auto 0.1 K/mm3 (0.0-0.1); Eosinophils Absolute Auto 0.3 K/mm3 (0-0.3); Eosinophils Percent Auto 2.9 % (0-4.4); Hemoglobin 15.5 g/dL (14.0-18.0); Immature Granulocyte Absolute 0.08 K/mm3 (0.00-0.031); Immature Granulocyte Percent A 0.7 % (0-0.5); Lymphocytes Absolute Auto 3.21 K/mm3 (0.9-3.2); Lymphocytes Percent Auto 27.9 % (18.3-44.2); Mean Corpuscular HGB Conc 31.6 g/dl (32-36); Mean Corpuscular Hemoglobin 30.5 pg (26-34); Mean Corpuscular Volume 96.3 fl (80-100); Mean Platelet Volume 10.3 fl (7.4-10.4); Monocytes Absolute Auto 0.8 K/mm3 (0.1-0.6); Monocytes Percent Auto 6.8 % (2.6-8.5); Neutrophils Percent Auto 60.7 % (45.5-73.1); Platelet Count Result 338 k/mm3 (150-375); Red Blood Count 5.09 M/mm3 (4.6-6.20); Red Cell Distribution Width 13.1 % (11.5-14.5); White Blood Count 11.5 K/mm3 (4.5-10.0)
[2024-06-16 16:06] LABS: Alanine Aminotransferase 23 U/L (6-50); Albumin Level 4.2 g/dL (3.5-5.1); Alkaline Phosphatase 107 U/L (38-126); Anion Gap 6 mmol/L (4-12); Aspartate Amino Transferase 57 U/L (17-59); Bilirubin,Total 0.6 mg/dL (0.2-1.3); Blood Urea Nitrogen 22 mg/dL (9-20); Calcium 9.3 mg/dL (8.4-10.2); Carbon Dioxide 27 mmol/L (22-30); Chloride 106 mmol/L (98-107); Cholesterol 207 mg/dL (0-200); Estimated Glomerular Filt Rate 60; Glucose 64 mg/dL (65-110); HDL Direct 30 mg/dL; Potassium 4.3 mmol/L (3.4-5.0); Sodium 139 mmol/L (137-145); Triglycerides 228 mg/dL (<150)
[2024-06-16 16:17] LABS: LDL Cholesterol Direct 132 mg/dL
[2024-06-16 16:25] LABS: Vitamin D 25 Hydroxy 26.2 ng/mL
[2024-06-16 16:37] LABS: Prostate Specific Antigen 1.4 ng/mL (< OR = 4.0)
[2024-06-16 18:26] LABS: Hemoglobin A1C 5.9 % (<5.7)
[2024-06-17 18:39] LABS: Total Triiodothyronine (T3) 1.26 NG/ML (0.97-1.69)
== END 2024-06-16 10:12 | disposition home or self-care (01) ==
PROVIDERS: PCP Family Medicine; Visit Provider Family Medicine
DX: R00.2 Palpitations (principal); I10 Essential (primary) hypertension; E53.8 Deficiency of other specified B group vitamins; E55.9 Vitamin D deficiency, unspecified; R73.9 Hyperglycemia, unspecified; G62.9 Polyneuropathy, unspecified; E78.5 Hyperlipidemia, unspecified; Z12.5 Encounter for screening for malignant neoplasm of prostate; Z79.899 Other long term (current) drug therapy
CPT/HCPCS: 36415; 80053; 80061; 82306; 82607; 83036; 84153; 84439; 84443; 84480; 85025; G0103

== ENCOUNTER 2024-12-17 09:25 | Outpatient (CLI) | payer MEDICARE, MEDICAID, SELFPAY ==
--- OUTSIDE RECORDS SUMMARY | 2024-12-17 10:02 | XMS_ITS | Clinical Summary ---
Author Organization [facility] Address [address] [place] [id number] Care Team Providers Care Wheelchair Driver Name Role Phone Beth Khan MD Primary Care Provider Mykel Mayen MD Unavailable [phone] Curtis Billings MD Unavailable [phone] Allergies Active Allergy Reactions Criticality Noted Date Comments Amoxicillin-Pot Clavulanate Nausea And Vomiting,Stomach upset Medium 01/09/2022 Chest pain Medications amLODIPine (NORVASC) 10 mg tablet Take 1 tablet (10 mg total) by mouth nightly 2 Active cholecalciferol (VITAMIN D-3) 50,000 unit capsule Take 50,000 Units by mouth every 30 (thirty) days Takes at end of the month. 2 Active metoprolol XL (TOPROL-XL) 25 mg extended release tablet Take 1 tablet (25 mg total) by mouth nightly 2 Active triamcinolone (KENALOG) 0.5 % cream 2 Active clobetasoL (TEMOVATE) 0.05 % cream Apply 1 application topically nightly Uses on his both arms Active albuterol HFA (PROVENTIL HFA,VENTOLIN HFA,PROAIR HFA) 90 mcg/actuation inhaler 2 puffs every 4 (four) hours as needed 3 Active fluticasone propionate (FLONASE) 50 mcg/actuation nasal spray USE 2 SPRAY(S) IN EACH NOSTRIL ONCE DAILY 3 Active Breo Ellipta 200-25 mcg/dose diskus inhaler INHALE 1 PUFF BY MOUTH ONCE DAILY RINSE MOUTH AFTER USE 3 Active Active Problems Problem Noted Date Diagnosed Date Postoperative abdominal pain 04/02/2022 Mass of left kidney 04/02/2022 Renal mass, left 03/30/2022 Renal mass 02/23/2022 Overview (02/23/2022): Added automatically from request for surgery [id number] Surgical History Surgery Date Site/Laterality Comments PARTIAL NEPHRECTOMY Left Medical History Medical History Date Comments Hypertension Palpitation GERD (gastroesophageal reflux disease) Left kidney mass Chronic pain disorder BACK Degenerative disc disease at L5-S1 level Arthritis back Calf cramp right Wears glasses Teeth missing Psoriasis bl hands Senile keratoma forehead which i s resolved. Social History Tobacco Use Types Packs/Day Years Used Date Smoking Tobacco: Former Smokeless Tobacco: Former Quit: 2005 Tobacco Cessation:Counseling Given: Not Answered AUDIT-C Answer Date Recorded Q1: How often do you have a drink containing alcohol? Never 03/30/2022 Q2: How many drinks containi ng alcohol do you have on a typical day when you are drinking? Patient does not drink Q3: How often do you have si x or more drinks on one occasion? 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 Gender Identity Male 07/12/2023 11:02 PM SET UP MECHANIC Sexual Orientation Not on file Obstetrics History Last Filed Vital Signs Vital Sign Reading Time Taken Comments Blood Pressure 134/61 04/04/2022 4:59 AM CDT Pulse 61 04/04/2022 4:59 AM CDT Temperature 36.5 C (97.7 F) 04/04/2022 4:59 AM CDT Respiratory Rate 18 04/04/2022 4:59 AM CDT Oxygen Saturation 93% 04/04/2022 4:59 AM CDT Inhaled Oxygen Concentration - - Weight 116.1 kg (256 lb) 04/02/2022 12:37 AM CDT Height 170.2 cm (5' 7) 04/02/2022 12:37 AM CDT Body Mass Index 40.1 04/02/2022 12:37 AM CDT Plan of Treatment Health Maintenance Due Date Last Done Comments Colon Cancer Screening-Colonoscopy 1955 Depression Screening 1955 Hepatitis C Screening 1955 Prostate Cancer Screening-PSA 1955 Well Visit 65+ 01/13/2021 Fall Risk Assessment 04/04/2023 04/04/2022 Covid-19 Vaccine (6 2023-2 5 season) 2024 03/30/2023, 05/17/2022, 11/28/2021, Additional history exists Influenza Vaccine (Season Ended) 2025 02/17/2023, 04/28/2022, 04/10/2020, Additional history exists DTaP/Tdap/Td Vaccine (2 - Td or Tdap) 05/02/2031 05/02/2021 Zoster Vaccine Completed 05/21/2021, 03/10/2021 Hepatitis B Screening Completed 10/19/2022 , 05/28/2022, 04/28/2022 Pneumococcal vaccine 65+ Completed 023, 04/28/2022, 03/30/2021 Abdominal Aortic Aneurysm (A AA) Screen Completed 04/01/2024, 11/28/2022, 04/02/2022, Additional history exists Procedures Procedure Name Priority Date/Time Associated Diagnosis Comments CT CHEST W AND ABDOMEN W WO CONTRAST (C) Schedule Routine, Read Routine (OP Routine) 04/01/2024 11:59 AM CDT Clear cell renal cell carcinoma, left (HCC) from Last 3 Months or Most Recently Relevant to Health Maintenance Results * CT Chest W and Abdomen W WO Contrast (C) (04/01/2024 11:59 AM CDT) Anatomical Region Laterality Modality Body N/A Computed Tomogra phy 04/01/2024 12:2 2 PM CDT Impressions 04/01/2024 12:22 PM CDT 1. Post surgical changes of partial left nephrectomy with evolving perinephric hematoma in the surgical bed. No evidence of local disease recurrence. 2. No evidence of metastasis in the chest or abdomen. Electronically signed by: Huong Doran M.D. Narrative 04/01/2024 12:22 PM CDT EXAMINATION: 1. Computed tomography of the chest without and with intravenous contrast 2. Computed tomography of the abdomen with and without intravenous contrast HISTORY: Left partial nephrectomy for clear cell renal carcinoma. TECHNIQUE: Transaxial computed tomographic images of the abdomen were obtained without intravenous contrast, followed by images of the chest and abdomen, after the uneventful administration of 125 mL Opti-Ray 350 intravenous contrast according to the chest and multiphase renal protocol. COMPARISON: CT abdomen and pelvis, 11/28/2022 CT chest abdomen and pelvis, 04/01/2022 FINDINGS: Chest: The aorta is normal in caliber with mild atherosclerosis. The main pulmonary artery is normal in caliber. No central pulmonary embolism. Mild three-vessel coronary artery calcification. Heart is normal in size without pericardial effusion. 6 mm groundglass nodule in the right middle lobe, likely infectious/inflammatory in nature. Calcified granuloma in the right lower lobe. Mild bibasilar atelectasis. No focal solid soft tissue nodule/mass, consolidation, pleural effusion or pneumothorax. No lymphadenopathy.. Abdomen: Liver is normal size with a smooth contour. Subcentimeter hypoattenuating lesion in hepatic segment 4 which is too small to characterize but may represent a simple cyst. The portal and hepatic veins are patent. No intrahepatic or extrahepatic biliary ductal dilatation. The gallbladder is normal. There is a calcified splenic granuloma. Spleen is otherwise normal. Unchanged 1.5 cm right adrenal adenoma. Left adrenal gland is normal. The pancreas is normal. Again seen are postsurgical changes of partial left nephrectomy in the midpole of the left kidney. There is persistent perinephric hematoma with some mildly improved in comparison to prior CT. No nodularity in the post surgical bed to suggest local recurrence. Similar appearance of a simple cyst in the inferior pole of the left kidney. No new visualized renal lesions. No nephrolithiasis or hydronephrosis. The stomach is normal. The visualized small and large bowel are normal. The abdominal aorta is normal in caliber with moderate atherosclerosis. The abdominal vessels are patent. No free or loculated fluid collections. No free intra-abdominal air. No lymphadenopathy. No suspicious osseous lesions. Multilevel degenerative changes of the visualized lumbar spine. Procedure Note Huong Doran MD - 04/01/2024 EXAMINATION: 1. Computed tomography of the chest without and with intravenous contrast 2. Computed tomography of the abdomen with and without intravenous contrast HISTORY: Left partial nephrectomy for clear cell renal carcinoma. TECHNIQUE: Transaxial computed tomographic images of the abdomen were obtained without intravenous contrast, followed by images of the chest and abdomen, after the uneventful administration of 125 mL Opti-Ray 350 intravenous contrast according to the chest and multiphase renal protocol. COMPARISON: CT abdomen and pelvis, 11/28/2022 CT chest abdomen and pelvis, 04/01/2022 FINDINGS: Chest: The aorta is normal in caliber with mild atherosclerosis. The main pulmonary artery is normal in caliber. No central pulmonary embolism. Mild three-vessel coronary artery calcification. Heart is normal in size without pericardial effusion. 6 mm groundglass nodule in the right middle lobe, likely infectious/inflammatory in nature. Calcified granuloma in the right lower lobe. Mild bibasilar atelectasis. No focal solid soft tissue nodule/mass, consolidation, pleural effusion or pneumothorax. No lymphadenopathy.. Abdomen: Liver is normal size with a smooth contour. Subcentimeter hypoattenuating lesion in hepatic segment 4 which is too small to characterize but may represent a simple cyst. The portal and hepatic veins are patent. No intrahepatic or extrahepatic biliary ductal dilatation. The gallbladder is normal. There is a calcified splenic granuloma. Spleen is otherwise normal. Unchanged 1.5 cm right adrenal adenoma. Left adrenal gland is normal. The pancreas is normal. Again seen are postsurgical changes of partial left nephrectomy in the midpole of the left kidney. There is persistent perinephric hematoma with some mildly improved in comparison to prior CT. No nodularity in the post surgical bed to suggest local recurrence. Similar appearance of a simple cyst in the inferior pole of the left kidney. No new visualized renal lesions. No nephrolithiasis or hydronephrosis. The stomach is normal. The visualized small and large bowel are normal. The abdominal aorta is normal in caliber with moderate atherosclerosis. The abdominal vessels are patent. No free or loculated fluid collections. No free intra-abdominal air. No lymphadenopathy. No suspicious osseous lesions. Multilevel degenerative changes of the visualized lumbar spine. IMPRESSION: 1. Post surgical changes of partial left nephrectomy with evolving perinephric hematoma in the surgical bed. No evidence of local disease recurrence. 2. No evidence of metastasis in the chest or abdomen. Electronically signed by: Huong Doran M.D. Shawna Rahman MD IMG CT PROCEDURES Final Result from Last 3 Months or Most Recently Relevant to Health Maintenance Insurance [employer] [facility] [place] [address] [employer] [facility] [place] [address] Advance Directives For more information, please contact: [phone] * Full Code (Latest Code Status on File) Date Activated Date Inactivated Comments 04/02/2022 8:16 AM 04/04/2022 3:23 PM * Full Code Date Activated Date Inactivated Comments 03/30/2022 4:48 PM 04/01/2022 6:18 PM Care Teams Wheelchair Driver Relationship Specialty Start Date End Date Beth Khan MD PCP - General Family Practice 02/16/22 Mykel Mayen MD [address] [facility] [address] [place] [address] Referring Physician Dermatology 03/22/22 Curtis Billings MD [address] [facility] [place] [address] Referring Physician Internal Medicine 03/22/22
--- OUTSIDE RECORDS SUMMARY | 2024-12-17 10:02 | XMS_ITS | Referral Summary ---
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 Procedure Note Andreea, Huong Menjivar MD - 04/01/2024 EXAMINATION: 1. Computed tomography [...] by: Huong Doran M.D. Shawna Rahman MD IM CT PROCEDURES Final Result from Last 3 Months or Most Recently Relevant to Health Maintenance Insurance [employer] [facility] MEDICARE ADVANTAGE [facility] Address: [address] [address] [place] [address] [facility] MEDICARE ADVANTAGE [facility] Address: [address] [address] [place] [address] Advance Directives For more information, please contact: [phone] * Full Code (Latest Code Status on File) Date Activated Date Inactivated Comments 04/02/2022 8:16 AM 04/04/2022 3:23 PM * Full Code Date Activated Date Inactivated Comments 03/30/2022 4:48 PM 04/01/2022 6:18 PM Care Teams Payroll Analyst Relationship Specialty Start Date End Date Beth Khan MD PCP - General Family Practice 02/16/22 Mykel Mayen MD [address] [facility] [place] [address] Referring Physician Dermatology 03/22/22 Curtis Billings MD [address] [facility] [place] [address] Referring Physician Internal Medicine 03/22/22
[2024-12-17 20:24] LABS: Vitamin D 25 Hydroxy 29.6 ng/mL
[2024-12-17 21:08] LABS: Alanine Aminotransferase 21 U/L (6-50); Albumin Level 3.9 g/dL (3.5-5.1); Alkaline Phosphatase 130 U/L (38-126); Anion Gap 8 mmol/L (4-12); Aspartate Amino Transferase 52 U/L (17-59); Bilirubin,Total 0.4 mg/dL (0.2-1.3); Blood Urea Nitrogen 11 mg/dL (9-20); Carbon Dioxide 27 mmol/L (22-30); Chloride 104 mmol/L (98-107); Estimated Glomerular Filt Rate > 60; Glucose 77 mg/dL (65-110); Potassium 4.1 mmol/L (3.4-5.0); Sodium 139 mmol/L (137-145); Total Protein 7.1 g/dL (6.3-8.2)
[2024-12-17 21:12] LABS: Free T4 Free Thyroxine Reflex 1.04 ng/dL (0.78-2.19)
[2024-12-17 21:44] LABS: Hemoglobin A1C 5.7 % (<5.7)
[2024-12-17 22:10] LABS: Total Triiodothyronine (T3) 1.29 NG/ML (0.82-1.58)
== END 2024-12-17 09:26 | disposition home or self-care (01) ==
LOC: ANHGOSHLAB 09:26
PROVIDERS: PCP Family Medicine; Visit Provider Family Medicine
DX: R73.03 Prediabetes (principal); E55.9 Vitamin D deficiency, unspecified; I10 Essential (primary) hypertension; E53.8 Deficiency of other specified B group vitamins
CPT/HCPCS: 36415; 80053; 82306; 82607; 83036; 84439; 84443; 84480

== ENCOUNTER 2024-12-30 13:27 | Outpatient (CLI) | payer MEDICARE, MEDICAID, SELFPAY ==
--- NOTE | 2024-12-31 11:14 | WPDPFTINT ---
PFT Procedure Performed PFT Procedure Performed Spirometry with Pre/Post Bronchodilator Plethysmography (Lung Vol) Diffusing Cap (DLCO) Flow Vol Loop PFT Interpretation This is a pulmonary function test with pre and post-bronchodilator spirometry, plethysmography and diffusing capacity. The test was performed and results interpreted in accordance with the 2019 and 2005 ATS/ERS Task Force guidelines respectively using the Global Lung Function Initiative-2012 reference equations. Patient demonstrated good effort and cooperation. Reproducibility criteria were met. The quality of the pre bronchodilator spirometry maneuver was Grade A and post bronchodilator spirometry maneuver was Grade A. Findings: Spirometry: The contour the inspiratory and expiratory flow tracing are normal. The pre bronchodilator FVC is 3.27 L, 84% predicted. The pre bronchodilator FEV1 is 2.38 L, 80% predicted. The pre bronchodilator FEV1: FVC ratio 73%. The post bronchodilator FVC is 3.25 L, representing a 1% decrease. The post bronchodilator FEV1 is 2.40 L, representing a 1% increase. The post bronchodilator FEV1: FVC ratio is 74%. Plethysmography: The total lung capacity is 6.67 L, 104% predicted. The functional residual capacity is 2.60 L, 78% predicted. The residual volume is 2.58 L, 115% predicted. Diffusing capacity: The diffusing capacity unadjusted for hemoglobin and carboxyhemoglobin is 19.1, 75% predicted. The diffusing capacity adjusted for alveolar volume is 4.15, 99% predicted. Impression: The spirometry is normal without evidence of an obstructive abnormality. There is no significant improvement after inhaling a single dose of albuterol. The lung volumes are normal. The diffusing capacity is normal. There are no prior studies for comparison
== END 2024-12-30 13:28 | disposition home or self-care (01) ==
LOC: ANHPFT 13:28
PROVIDERS: PCP Family Medicine; Visit Provider Family Medicine
DX: J45.20 Mild intermittent asthma, uncomplicated (principal)
CPT/HCPCS: 94060; 94726; 94729

== ENCOUNTER 2025-06-23 09:56 | Outpatient (CLI) | payer MEDICARE, MEDICAID, SELFPAY ==
--- OUTSIDE RECORDS SUMMARY | 2025-06-23 11:23 | XMS_ITS | Clinical Summary ---
Author Organization [facility] Address [address] [place] [id number] Care Team Providers Care Model Builder Name Role Phone Beth Khan MD Primary Care Provider Mykel Mayen MD Unavailable [phone] Curtis Billings MD Unavailable [phone] Allergies Active Allergy Reactions Criticality Noted Date [...] DAILY RINSE MOUTH AFTER USE 3 Active metoprolol ta-hydrochlorot hiaz (LOPRESSOR HCT) 100-50 mg per tablet Take 1 tablet by mouth daily Active Active Problems Problem Noted Date Diagnosed Date Postoperative abdominal pain 04/02/2022 Mass of left kidney 04/02/2022 Renal mass, left 03/30/2022 Renal mass 02/23/2022 Overview (02/23/2022): Added automatically from request for surgery [id number] Encounters Date Type Department Care Team Description 04/16/2025 8:20 AM CDT Office Visit [facility] Phys[facility] Surgery [address] [place] [address] Jarod Bloom, AIR CONDITIONING INSTALLER Clear cell renal cell carcinoma, left (HCC) (Primary Dx) 04/04/2025 Results Follow-Up [facility] ([facility] - [facility] Urology [address] [place] [address] 11[address] [place] [address] [place] [id number] Chest Abdomen W Contrast 04/01/2025 9:25 AM CDT - 04/01/2025 11:59 PM CDT Hospital Encounter [facility] [address] [place] [address] Clear cell renal cell carcinoma, left (HCC) Discharge Disposition: Discharge to home or self care from Last 3 Months Surgical History Surgery Date Site/Laterality Comments PARTIAL [...] on file 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 Gender Identity Male 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 Sexual Orientation Not on file Last Filed Vital Signs Vital Sign Reading Time Taken Comments Blood Pressure 134/61 04/04/2022 4:59 AM CDT Pulse 61 04/04/2022 4:59 AM CDT Temperature 36.5 C (97.7 F) 04/04/2022 4:59 AM CDT Respiratory Rate 18 04/04/2022 4:59 AM CDT Oxygen Saturation 93% 04/04/2022 4:59 AM CDT Inhaled Oxygen Concentration - - Weight 112.9 kg (249 lb) 04/16/2025 8:08 AM CDT Height 170.2 cm (5' 7) 04/16/2025 8:08 AM CDT Body Mass Index 39 04/16/2025 8:08 AM CDT Plan of Treatment Health Maintenance Due Date Last Done Comments Colon Cancer Screening-Colonoscopy 1955 Depression Screening 1955 Hepatitis C Screening 1955 Prostate Cancer Screening-PSA 1955 Well Visit 65+ 01/13/2021 Fall Risk Assessment 04/04/2023 04/04/2022 Covid-19 Vaccine ( - 2024-2 6 season) 2025 03/30/2023, 03/30/2023, 05/17/2022, Additional history exists Influenza Vaccine (#1) 2025 4, 03/20/2023, 02/17/2023, Additional history exists DTaP/Tdap/Td Vaccine (2 - Td or Tdap) 05/02/2031 05/02/2021 Zoster Vaccine Completed 05/21/2021, 03/10/2021 Hepatitis B Screening Completed 10/19/2022 , 05/28/2022, 04/28/2022 Pneumococcal vaccine 65+ Completed 08/13/2 023, 04/28/2022, 03/30/2021 Abdominal Aortic Aneurysm (A AA) Screen Completed 04/01/2025, 04/01/2024, 11/28/2022, Additional history exists Procedures Procedure Name Priority Date/Time Associated Diagnosis Comments CT CHEST ABDOMEN W CONTRAST Schedule Routine, Read Routine (OP Routine) 04/01/2025 10:07 AM CDT Clear cell renal cell carcinoma, left (HCC) POCT CREATININE FOR CONTRAST EVALUATION Routine 04/01/2025 9:58 AM CDT from Last 3 Months Results * CT Chest Abdomen W Contrast (04/01/2025 10:07 AM CDT) Anatomical Region Laterality Modality Body N/A Computed Tomogra phy 04/03/2025 10:0 1 PM CDT Narrative 04/03/2025 10:11 PM CDT EXAM DESCRIPTION: CT CHEST ABDOMEN W CONTRAST REASON FOR STUDY: h/o L partial nephrectomy for renal cell carcinoma. surveillance h/o Left partial nephrectomy for renal cell carcinoma. F/u for surveillance of left sided clear cell renal cell carcinoma Renal cell carcinoma diagnosed in 2021 TECHNIQUE: CT scan of the chest and abdomen performed with intravenous and without oral contrast using helical scanning technique with dynamic intravenous contrast injection. Reconstructed coronal and sagittal MPR images reviewed. All images stored on PACS. Automated exposure control was used as a dose optimization technique for this examination. CONTRAST TYPE/DOSE: 100mL of IOVERSOL 350 MG IODINE/ML INTRAVENOUS SYRINGE was injected via the intravenous COMPARISON: 04/01/2024 CT. This study showed evolving perinephric hematoma in the surgical bed no metastasis FINDINGS: Lung window images show no significant noncalcified lung nodules. No bronchial thickening or bronchiectasis. Cardiac chambers are normal. No significant coronary calcific plaque. No pericardial or pleural effusions. No adenopathy in the mediastinum or heron. Esophagus normal. No axillary or supraclavicular adenopathy. In the abdomen there is mild fatty liver. 6 mm hypoattenuating lesion in the superomedial left hepatic lobe segment was present previously and unchanged. Gallbladder spleen normal. 17 mm left adrenal lesion with the relative low attenuation unchanged in size. There has been partial nephrectomy on the left. Some postop scarring is seen in the anterolateral lower pole there is a 16 mm hypodense mass lesion in the anteromedial lower pole of the left kidney which is increased in size from about 11 mm previously. Given the relatively rapid growth in 1 year would recommend a follow-up MRI of the left kidney mass protocol. Otherwise the kidneys are unchanged. Pancreas is normal. Aorta has some mild calcific plaque no aneurism. There is a 40% stenosis in the proximal right common iliac artery. No ascites in the upper abdomen. No retroperitoneal or mesenteric adenopathy of significance. Duodenal diverticulum is present. Otherwise visualized portions of the bowel are normal. Bony structures show multilevel degenerative disc disease throughout the lumbar spine IMPRESSION: 1. No evidence of metastasis to the thorax or lungs. 2. Increased size and a low attenuating lesion in the lower pole left kidney in close proximity to the site of tumor resection. Recommend MRI renal mass protocol for further assessment given the relatively rapid increase in size of this lesion. 3. Stable right adrenal nodule. THIS IS AN ELECTRONICALLY VERIFIED FINAL REPORT 04/03/2025 10:11 PM - Electronically signed by Edmundo Eaton M.D. DA: STEVEN Report ID: [id number] Reading Location: [facility] Lux Note Edmundo Eaton MD - 04/03/2025 EXAM DESCRIPTION: CT CHEST ABDOMEN W CONTRAST REASON FOR STUDY: h/o L partial nephrectomy for renal cell carcinoma. surveillance h/o Left partial nephrectomy for renal cell carcinoma. F/u forsurveillance of left sided clear cell renal cell carcinoma Renal cell carcinomadiagnosed in 2021 TECHNIQUE: CT scan of the chest and abdomen performed with intravenousand without oral contrast using helical scanning technique with dynamic intravenous contrast injection. Reconstructed coronal and sagittal MPRimages reviewed. All images stored on PACS. Automated exposure control was usedas a dose optimization technique for this examination. CONTRAST TYPE/DOSE: 100mL of IOVERSOL 350 MG IODINE/ML INTRAVENOUSSYRINGE was injected via the intravenous COMPARISON: 04/01/2024 CT. This study showed evolving perinephrichematoma in the surgical bed no metastasis FINDINGS: Lung window images show no significant noncalcified lungnodules. No bronchial thickening or bronchiectasis. Cardiac chambers are normal.No significant coronary calcific plaque. No pericardial or pleuraleffusions. No adenopathy in the mediastinum or heron. Esophagus normal. No axillaryor supraclavicular adenopathy. In the abdomen there is mild fatty liver. 6 mm hypoattenuating lesion inthe superomedial left hepatic lobe segment was present previously andunchanged. Gallbladder spleen normal. 17 mm left adrenal lesion with the relativelow attenuation unchanged in size. There has been partial nephrectomy on the left. Some postop scarring is seen in the anterolateral lower pole thereis a 16 mm hypodense mass lesion in the anteromedial lower pole of the leftkidney which is increased in size from about 11 mm previously. Given therelatively rapid growth in 1 year would recommend a follow-up MRI of the left kidneymass protocol. Otherwise the kidneys are unchanged. Pancreas is normal. Aorta has some mild calcific plaque no aneurism.There is a 40% stenosis in the proximal right common iliac artery. No ascitesin the upper abdomen. No retroperitoneal or mesenteric adenopathy of significance. Duodenal diverticulum is present. Otherwise visualized portions of the bowel are normal. Bony structures show multilevel degenerative disc disease throughout the lumbar spine IMPRESSION: 1. No evidence of metastasis to the thorax or lungs. 2. Increased size and a low attenuating lesion in the lower pole leftkidney in close proximity to the site of tumor resection. Recommend MRI renalmass protocol for further assessment given the relatively rapid increase insize of this lesion. 3. Stable right adrenal nodule. THIS IS AN ELECTRONICALLY VERIFIED FINAL REPORT 04/03/2025 10:11 PM - Electronically signed by Edmundo Eaton M.D. DA: STEVEN Report ID: [id number] Reading Location: [facility] Shawna Rahman MD IM CT PROCEDURES Final Result * POCT creatinine for contrast evaluation (04/01/2025 9:58 AM CDT) Creatinine POC 1.20 0.80 - 1.30 mg/dL Comment:Testing performed by : [facility], [address] [place] [address], [place]., [address] Blood 04/01/2025 9:58 AM CDT 04/01/2025 9:58 AM CDT Shawna Rahman MD POINT OF CARE TEST ORDERABLES nal Result Performing Organization Address City/State/ZIP Co ct Phone Number [facility] [address] [facility] Department [place] [address] from Last 3 Months Insurance [facility] Address: [facility] [address] [place] [address] [employer] [facility] Address: [address] [address] [place] [address] [employer] Advance Directives For more information, please contact: [phone] * Full Code (Latest Code Status on File) Date Activated Date Inactivated Comments 04/02/2022 8:16 AM 04/04/2022 3:23 PM * Full Code Date Activated Date Inactivated Comments 03/30/2022 4:48 PM 04/01/2022 6:18 PM Care Teams Model Builder Relationship Specialty Start Date End Date Beth Khan MD PCP - General Family Practice 02/16/22 Mykel Mayen MD [address] [place] [address] Referring Physician Dermatology 03/22/22 Curtis Billings MD [address] [place] [address] Referring Physician Internal Medicine 03/22/22
[2025-06-23 19:44] LABS: Hematocrit 50.9 % (42.0-52.0); Hemoglobin 16.3 g/dL (14.0-18.0); Immature Granulocyte Percent A 0.4 % (0-0.5); Lymphocytes Absolute Auto 2.61 K/mm3 (0.9-3.2); Mean Corpuscular HGB Conc 32.0 g/dl (32-36); Mean Corpuscular Hemoglobin 30.4 pg (26-34); Mean Corpuscular Volume 95.0 fl (80-100); Nucleated Red Blood Cells Absolute Auto 0.000 K/mm3 (0.0-0.012); Nucleated Red Blood Cells Perc 0.0 % (0.0-0.2); Platelet Count Result 289 k/mm3 (150-375); Red Blood Count 5.36 M/mm3 (4.6-6.20); White Blood Count 8.2 K/mm3 (4.5-10.0)
[2025-06-23 19:47] LABS: Alanine Aminotransferase 25 U/L (6-50); Albumin Level 4.1 g/dL (3.5-5.1); Alkaline Phosphatase 104 U/L (38-126); Anion Gap 6 mmol/L (4-12); Aspartate Amino Transferase 42 U/L (17-59); Bilirubin,Total 0.8 mg/dL (0.2-1.3); Blood Urea Nitrogen 15 mg/dL (9-20); Calcium 9.3 mg/dL (8.4-10.2); Carbon Dioxide 30 mmol/L (22-30); Chloride 103 mmol/L (98-107); Cholesterol 205 mg/dL (0-200); Estimated Glomerular Filt Rate > 60; Glucose 114 mg/dL (65-110); HDL Direct 26 mg/dL; Magnesium 2.1 mg/dL (1.6-2.3); Potassium 4.1 mmol/L (3.4-5.0); Sodium 139 mmol/L (137-145); Total Protein 7.2 g/dL (6.3-8.2); Triglycerides 299 mg/dL (<150)
[2025-06-23 19:55] LABS: Iron 112 ug/dL (49-181)
[2025-06-23 20:04] LABS: Percent Iron Saturation 38 % (20-50)
[2025-06-23 20:21] LABS: Thyroid Stimulating Hormone Reflex 3.700 uIU/mL (0.465-4.68)
[2025-06-23 20:23] LABS: Prostate Specific Antigen 1.3 ng/mL (< OR = 4.0)
[2025-06-23 20:42] LABS: Vitamin B12 209.0 pg/mL (239-931)
[2025-06-23 21:04] LABS: Hemoglobin A1C 5.8 % (<5.7)
== END 2025-06-23 09:57 | disposition home or self-care (01) ==
PROVIDERS: PCP Family Medicine; Visit Provider Nurse Practitioner Family
DX: Z12.5 Encounter for screening for malignant neoplasm of prostate (principal); D51.9 Vitamin B12 deficiency anemia, unspecified; E78.5 Hyperlipidemia, unspecified; I10 Essential (primary) hypertension; R73.03 Prediabetes; R00.2 Palpitations; E55.9 Vitamin D deficiency, unspecified; R06.02 Shortness of breath; R68.89 Other general symptoms and signs
CPT/HCPCS: 36415; 80053; 80061; 82306; 82607; 83036; 83540; 83550; 83735; 84153; 84443; 85025; G0103